=== PATIENT | male | born 1985 | race Caucasian/White ===

== ENCOUNTER 2019-10-24 12:08 | Emergency (ER) | payer SELFPAY ==
[~2019-10-24] VITALS: Ht 172.7 cm; Wt 98.0 kg
[2019-10-24 12:13] VITALS: Ht 172.7 cm; Wt 98.0 kg
[2019-10-24 13:43] VITALS: BP 134/86
== END 2019-10-24 13:43 | disposition home or self-care (01) ==
LOC: ED 12:08
DX: S56.116A Strain of flexor muscle, fascia and tendon of left ring finger at forearm level, initial encounter (principal); W21.01XA Struck by football, initial encounter; Y93.61 Activity, american tackle football; Y92.321 Football field as the place of occurrence of the external cause; Y99.8 Other external cause status
CPT/HCPCS: Q0092